=== PATIENT | male | born 1975 | race Two or more races ===

== ENCOUNTER 2024-10-06 17:23 | Inpatient (IN) | payer OTHER ==
[~2024-10-06] VITALS: Ht 167.6 cm; Wt 86.4 kg
[2024-10-06] MEDS ORDERED: 0.9% SODIUM CHLORIDE 10 ML SYRINGE IVP PRN (18:45)
[2024-10-06] MEDS: SODIUM CHLORIDE 0.9% 2,700 ML IV ONE (18:57)
[2024-10-06 19:06] LABS: BASOPHILS % (AUTO) 0.1 % (0.0-2.0); EOSINOPHILS % (AUTO) 0.2 % (1.0-6.0); HEMATOCRIT 37.1 % (41-53); HEMOGLOBIN 12.8 g/dL (13.5-17.5); LYMPHOCYTES % (AUTO) 7.6 % (22.0-44.0); MEAN CORPUSCULAR HEMOGLOBIN 31.9 pg (26.0-34.0); MEAN CORPUSCULAR HGB CONC 34.5 G/dL (31.0-37.0); MEAN CORPUSCULAR VOLUME 92 fL (80-100); MONOCYTES # (AUTO) 0.8 K/uL (0.1-1.0); MONOCYTES % (AUTO) 5.9 % (2.0-9.0); NEUTROPHILS # (AUTO) 11.9 K/uL (1.8-7.7); PLATELET COUNT (AUTO) 359 K/uL (150-450); RED BLOOD CELL COUNT(AUTO) 4.01 MIL/uL (4.50-5.90); RED CELL DISTRIBUTION WIDTH 11.5 % (11.5-14.5); WHITE BLOOD COUNT (AUTO) 13.8 K/uL (4.5-11.0)
[2024-10-06 19:13] LABS: NEUTROPHILS % (AUTO) 86.2 % (40.0-70.0)
[2024-10-06 19:17] LABS: ANION GAP 11 mmol/L (8-16); CALCIUM, TOTAL 8.9 mg/dL (8.8-10.5); CARBON DIOXIDE 24 mmol/L (22-29); CHLORIDE 101 mmol/L (98-107); CREATININE 0.85 mg/dL (0.60-1.30); GLOMERULAR FILTR. RATE CALC > 60 mL/min (>60); GLUCOSE,RANDOM 271 mg/dL (70-110); POTASSIUM 4.1 mmol/L (3.5-5.1); SODIUM SERUM 136 mmol/L (136-145); UREA NITROGEN, BLOOD 12 mg/dL (7-18)
[2024-10-06 19:20] LABS: PROTHROMBIN TIME 9.7 SEC (9.4-11.6)
[2024-10-06 19:26] LABS: LACTIC ACID 1.8 mmol/L (0.4-2.0)
[2024-10-06 19:27] LABS: TROPONIN I-HIGH SENSITIVITY Less Than 4 ng/L (<76)
[2024-10-06] MEDS: VANCOMYCIN 1.75GM/WATER(PEG) 350 ML IV ONE (20:17)
[2024-10-06] MEDS ORDERED: DEXTROSE 50%-WATER 25 GM/50 ML SYRINGE IVP PRN (21:00)
[2024-10-06] MEDS: DOCUSATE SODIUM 100 MG CAPSULE PO SCH (21:00)
[2024-10-06] MEDS ORDERED: ACETAMINOPHEN 325 MG TABLET PO PRN (21:00)
[2024-10-06] MEDS: CefTRIAXone 1 GM/DEXTROSE 50 ML IV SCH (21:36)
[2024-10-06] MEDS: OxyCODONE HCL/ACETAMINOPHEN 5-325 MG TABLET PO PRN (23:18)
[2024-10-06] MEDS: ZOLPIDEM TARTRATE 5 MG TABLET PO PRN (23:19)
[2024-10-07 00:01] VITALS: BP 127/77; PULSE 86; RESP 17; TEMP 98.6; O2SAT 97
[2024-10-07] MEDS: HEPARIN SODIUM,PORCINE 5,000 UNITS/ML VIAL SQ SCH (00:09)
[2024-10-07 01:42] LABS: APPEARANCE,URINE CLEAR (CLEAR); BILIRUBIN,URINE NEGATIVE (NEGATIVE); COLOR,URINE COLORLESS (YELLOW); GLUCOSE, URINE (UA) >=1000 mg/dL (NEGATIVE); KETONES,URINE NEGATIVE (NEGATIVE); LEUKOCYTE ESTERASE ,URINE NEGATIVE (NEGATIVE); NITRATE,URINE NEGATIVE (NEGATIVE); OCCULT BLOOD,URINE NEGATIVE (NEGATIVE); PH,URINE 6.5 (5.0-8.0); PROTEIN,URINE NEGATIVE (NEGATIVE); SPECIFIC GRAVITIY, URINE 1.019 (1.003-1.030); UROBILINOGEN,URINE <=1.0 mg/dL (<=1.0)
[2024-10-07 01:47] LABS: BACTERIA,URINE None Seen /HPF (None Seen); RBC,URINE None Seen /HPF (0-2); SQUAMOUS EPITHELIAL CELL,UR None Seen /LPF (None Seen); WBC,URINE None Seen /HPF (0-5)
[2024-10-07 04:53] VITALS: BP 106/79; PULSE 86; RESP 18; TEMP 98.8; O2SAT 99
[2024-10-07] MEDS: INSULIN LISPRO 100 UNITS/ML SQ PRN (06:15)
[2024-10-07] MEDS: VANCOMYCIN 1.5 GM/WATER(PEG) 300 ML IV SCH (07:54)
[2024-10-07] MEDS: FAMOTIDINE 20 MG TABLET PO SCH (07:54)
[2024-10-07] MEDS: ASPIRIN 81 MG CHEWABLE TABLET PO SCH (07:55)
[2024-10-07 07:56] LABS: ANION GAP 9 mmol/L (8-16); CALCIUM, TOTAL 8.4 mg/dL (8.8-10.5); CARBON DIOXIDE 22 mmol/L (22-29); CHLORIDE 103 mmol/L (98-107); CREATININE 0.64 mg/dL (0.60-1.30); GLOMERULAR FILTR. RATE CALC > 60 mL/min (>60); GLUCOSE,RANDOM 211 mg/dL (70-110); SODIUM SERUM 134 mmol/L (136-145); UREA NITROGEN, BLOOD 7 mg/dL (7-18)
[2024-10-07 08:23] VITALS: BP 105/74; PULSE 81; RESP 18; TEMP 98.2; O2SAT 97
[2024-10-07 16:51] LABS: GLUCOMETER DEV NAME(LOC) 6S.2; GLUCOSE,POINT OF CARE 211 MG/DL (70-110)
[2024-10-07] MEDS: MetFORMIN HCL 500 MG TABLET PO SCH (17:27)
[2024-10-07 18:26] LABS: GLUCOMETER DEV NAME(LOC) 6S.1D; GLUCOSE,POINT OF CARE 252 MG/DL (70-110)
[2024-10-07 18:26] LABS: GLUCOMETER DEV NAME(LOC) 6S.1D; GLUCOSE,POINT OF CARE 192 MG/DL (70-110)
[2024-10-07 20:18] VITALS: BP 108/69; PULSE 87; RESP 18; TEMP 99.1; O2SAT 98
[2024-10-08 05:18] VITALS: BP 112/81; PULSE 78; RESP 18; TEMP 98.2; O2SAT 95
[2024-10-08 07:10] LABS: BASOPHILS % (AUTO) 0.3 % (0.0-2.0); EOSINOPHILS % (AUTO) 0.6 % (1.0-6.0); HEMATOCRIT 34.7 % (41-53); HEMOGLOBIN 12.2 g/dL (13.5-17.5); LYMPHOCYTES # (AUTO) 1.7 K/uL (1.0-4.8); LYMPHOCYTES % (AUTO) 16.7 % (22.0-44.0); MEAN CORPUSCULAR HEMOGLOBIN 32.2 pg (26.0-34.0); MEAN CORPUSCULAR VOLUME 92 fL (80-100); MONOCYTES # (AUTO) 0.6 K/uL (0.1-1.0); MONOCYTES % (AUTO) 5.3 % (2.0-9.0); NEUTROPHILS % (AUTO) 77.1 % (40.0-70.0); PLATELET COUNT (AUTO) 357 K/uL (150-450); RED BLOOD CELL COUNT(AUTO) 3.78 MIL/uL (4.50-5.90); RED CELL DISTRIBUTION WIDTH 11.5 % (11.5-14.5); WHITE BLOOD COUNT (AUTO) 10.3 K/uL (4.5-11.0)
[2024-10-08 07:40] LABS: GLUCOMETER DEV NAME(LOC) 6N.2B; GLUCOSE,POINT OF CARE 252 MG/DL (70-110)
[2024-10-08 07:40] LABS: GLUCOMETER DEV NAME(LOC) 6N.2B; GLUCOSE,POINT OF CARE 271 MG/DL (70-110)
[2024-10-08 08:32] VITALS: BP 115/77; PULSE 79; RESP 20; TEMP 99; O2SAT 99
[2024-10-08 17:05] LABS: GLUCOMETER DEV NAME(LOC) 6S.2; GLUCOSE,POINT OF CARE 288 MG/DL (70-110)
[2024-10-08 20:20] VITALS: BP 109/64; PULSE 79; RESP 18; TEMP 98.2; O2SAT 97
[2024-10-09 06:00] VITALS: BP 115/83; PULSE 79; RESP 16; TEMP 98.2; O2SAT 99
[2024-10-09 07:29] LABS: ANION GAP 5 mmol/L (8-16); CALCIUM, TOTAL 9.1 mg/dL (8.8-10.5); CARBON DIOXIDE 28 mmol/L (22-29); CHLORIDE 99 mmol/L (98-107); GLOMERULAR FILTR. RATE CALC > 60 mL/min (>60); GLUCOSE,RANDOM 250 mg/dL (70-110); SODIUM SERUM 132 mmol/L (136-145); UREA NITROGEN, BLOOD 11 mg/dL (7-18)
[2024-10-09 08:00] VITALS: BP 109/78; PULSE 81; RESP 17; TEMP 98.1; O2SAT 98
[2024-10-09] MEDS: VANCOMYCIN 1.25 GM/WATER(PEG) 250 ML IV SCH (09:29)
[2024-10-09] MEDS: MetFORMIN HCL 500 MG TABLET PO SCH (17:36)
[2024-10-09 19:31] VITALS: BP 116/82; PULSE 82; RESP 18; TEMP 97.9; O2SAT 97
[2024-10-09] MEDS: SODIUM CHLORIDE 0.9% 1,000 ML IV ONE (19:59)
[2024-10-09 20:40] LABS: GLUCOMETER DEV NAME(LOC) 6N.2B; GLUCOSE,POINT OF CARE 331 MG/DL (70-110)
[2024-10-09 20:40] LABS: GLUCOMETER DEV NAME(LOC) 6N.2B; GLUCOSE,POINT OF CARE 358 MG/DL (70-110)
[2024-10-10] MEDS: MORPHINE SULFATE 2 MG/ML SYRINGE IVP PRN (00:40)
[2024-10-10 04:15] VITALS: BP 115/78; PULSE 72; RESP 18; TEMP 98.4; O2SAT 97
[2024-10-10 07:57] VITALS: BP 115/81; PULSE 71; RESP 18; TEMP 98.1; O2SAT 95
[2024-10-10 08:25] LABS: GLUCOMETER DEV NAME(LOC) 6N.2B; GLUCOSE,POINT OF CARE 233 MG/DL (70-110)
[2024-10-10 10:48] LABS: ANION GAP 1 mmol/L (8-16); CALCIUM, TOTAL 9.1 mg/dL (8.8-10.5); CARBON DIOXIDE 31 mmol/L (22-29); CHLORIDE 102 mmol/L (98-107); CREATININE 0.88 mg/dL (0.60-1.30); GLOMERULAR FILTR. RATE CALC > 60 mL/min (>60); GLUCOSE,RANDOM 246 mg/dL (70-110); POTASSIUM 4.9 mmol/L (3.5-5.1); SODIUM SERUM 133 mmol/L (136-145); UREA NITROGEN, BLOOD 11 mg/dL (7-18)
[2024-10-10] MEDS: ETHYL ALCOHOL 62% ANTISEPTIC NASAL SANITIZER 0.6 ML AMPUL NASAL ONE (11:08)
[2024-10-10] MEDS: CHLORHEXIDINE GLUCONATE 2% TOWELETTE [2'S/6'S] TP ONE (11:17)
[2024-10-10] MEDS: RINGERS SOLUTION,LACTATED 1,000 ML IV ONE (11:19)
[2024-10-10] MEDS ORDERED: FentaNYL CITRATE PF 100 MCG/2 ML VIAL IVP PRN (12:15)
[2024-10-10] MEDS ORDERED: MEPERIDINE-PF 25 MG/ML VIAL IVP PRN (12:15)
[2024-10-10] MEDS ORDERED: HYDROmorphone HCL 2 MG/ML SYRINGE IVP PRN (12:15)
[2024-10-10] MEDS: LIDOCAINE/PF 2% 5 ML VIAL ONE (12:49)
[2024-10-10] MEDS: BUPIVACAINE HCL/PF 0.25% 30 ML VIAL ONE (12:51)
[2024-10-10] MEDS ORDERED: ONDANSETRON HCL 4 MG/2 ML VIAL ONE (18:00)
[2024-10-10] MEDS ORDERED: PROPOFOL 1% 20 ML VIAL IVP ONE (18:00)
[2024-10-10] MEDS ORDERED: 0.9% SODIUM CHLORIDE 10 ML VIAL ONE (18:00)
[2024-10-10] MEDS ORDERED: PHENYLEPHRINE HCL 10 MG/ML VIAL ONE (18:00)
[2024-10-10] MEDS ORDERED: LIDOCAINE/PF 2% 5 ML SYRINGE IVP ONE (18:00)
[2024-10-10] MEDS ORDERED: SUGAMMADEX SODIUM 200 MG/2 ML VIAL IVP ONE (18:00)
[2024-10-10] MEDS ORDERED: ROCURONIUM BROMIDE 10 MG/ML 5 ML VIAL ONE (18:00)
[2024-10-10 18:41] LABS: GLUCOMETER DEV NAME(LOC) 6S.1D; GLUCOSE,POINT OF CARE 354 MG/DL (70-110)
[2024-10-10 18:41] LABS: GLUCOMETER DEV NAME(LOC) 6S.1D; GLUCOSE,POINT OF CARE 290 MG/DL (70-110)
[2024-10-10 18:41] LABS: GLUCOMETER DEV NAME(LOC) 6S.1D; GLUCOSE,POINT OF CARE 237 MG/DL (70-110)
[2024-10-10 18:41] LABS: GLUCOMETER DEV NAME(LOC) 6S.1D; GLUCOSE,POINT OF CARE 268 MG/DL (70-110)
[2024-10-10 19:55] VITALS: BP 109/76; PULSE 83; RESP 18; TEMP 98.4; O2SAT 96
[2024-10-11 01:21] LABS: GLUCOMETER DEV NAME(LOC) 6S.1D; GLUCOSE,POINT OF CARE 278 MG/DL (70-110)
[2024-10-11 01:21] LABS: GLUCOMETER DEV NAME(LOC) 6N.2B; GLUCOSE,POINT OF CARE 326 MG/DL (70-110)
[2024-10-11 04:35] VITALS: BP 100/79; PULSE 70; RESP 16; TEMP 97.7; O2SAT 96
[2024-10-11 06:40] LABS: GLUCOMETER DEV NAME(LOC) 6S.1D; GLUCOSE,POINT OF CARE 243 MG/DL (70-110)
[2024-10-11 07:44] LABS: ANION GAP 7 mmol/L (8-16); CALCIUM, TOTAL 9.2 mg/dL (8.8-10.5); CARBON DIOXIDE 29 mmol/L (22-29); CHLORIDE 100 mmol/L (98-107); CREATININE 0.98 mg/dL (0.60-1.30); GLOMERULAR FILTR. RATE CALC > 60 mL/min (>60); GLUCOSE,RANDOM 254 mg/dL (70-110); POTASSIUM 4.3 mmol/L (3.5-5.1); SODIUM SERUM 136 mmol/L (136-145); UREA NITROGEN, BLOOD 13 mg/dL (7-18)
[2024-10-11 07:59] VITALS: BP 96/65; PULSE 66; RESP 18; TEMP 98.1; O2SAT 98
[2024-10-11] MEDS: OXYGEN THERAPY IH SCH (08:00)
[2024-10-11 17:25] LABS: GLUCOMETER DEV NAME(LOC) 6N.2B; GLUCOSE,POINT OF CARE 290 MG/DL (70-110)
[2024-10-11 19:51] VITALS: BP 111/76; PULSE 74; RESP 18; TEMP 98.1; O2SAT 96
[2024-10-11 21:05] LABS: GLUCOMETER DEV NAME(LOC) 6S.1D; GLUCOSE,POINT OF CARE 203 MG/DL (70-110)
[2024-10-12 00:46] LABS: GLUCOMETER DEV NAME(LOC) 6N.2B; GLUCOSE,POINT OF CARE 218 MG/DL (70-110)
[2024-10-12 05:17] VITALS: BP 106/69; PULSE 57; RESP 19; TEMP 97.5; O2SAT 97
[2024-10-12] MEDS ORDERED: MIDAZOLAM HCL 2 MG/2 ML VIAL IVP ONE (06:53)
[2024-10-12 08:00] VITALS: BP 96/61; PULSE 59; RESP 20; TEMP 97.5; O2SAT 100
[2024-10-12 08:21] LABS: GLUCOMETER DEV NAME(LOC) 6N.2B; GLUCOSE,POINT OF CARE 239 MG/DL (70-110)
[2024-10-12] MEDS ORDERED: SODIUM CHLORIDE 0.9% 1,000 ML ONE (09:21)
[2024-10-12 20:01] VITALS: BP 115/79; PULSE 79; RESP 18; TEMP 98.2; O2SAT 97
[2024-10-12 20:25] LABS: GLUCOMETER DEV NAME(LOC) 6S.2; GLUCOSE,POINT OF CARE 228 MG/DL (70-110)
[2024-10-12 20:25] LABS: GLUCOMETER DEV NAME(LOC) 6S.2; GLUCOSE,POINT OF CARE 194 MG/DL (70-110)
[2024-10-13 04:00] VITALS: BP 112/71; PULSE 63; RESP 18; TEMP 97.5; O2SAT 97
[2024-10-13 05:16] LABS: GLUCOMETER DEV NAME(LOC) 6S.2; GLUCOSE,POINT OF CARE 234 MG/DL (70-110)
[2024-10-13 07:15] LABS: BASOPHILS % (AUTO) 0.5 % (0.0-2.0); EOSINOPHILS % (AUTO) 2.3 % (1.0-6.0); HEMOGLOBIN 12.8 g/dL (13.5-17.5); LYMPHOCYTES # (AUTO) 2.2 K/uL (1.0-4.8); LYMPHOCYTES % (AUTO) 36.7 % (22.0-44.0); MEAN CORPUSCULAR HEMOGLOBIN 31.7 pg (26.0-34.0); MEAN CORPUSCULAR HGB CONC 34.6 G/dL (31.0-37.0); MEAN CORPUSCULAR VOLUME 92 fL (80-100); MONOCYTES # (AUTO) 0.4 K/uL (0.1-1.0); MONOCYTES % (AUTO) 6.5 % (2.0-9.0); NEUTROPHILS # (AUTO) 3.2 K/uL (1.8-7.7); PLATELET COUNT (AUTO) 476 K/uL (150-450); RED BLOOD CELL COUNT(AUTO) 4.04 MIL/uL (4.50-5.90); RED CELL DISTRIBUTION WIDTH 11.5 % (11.5-14.5)
[2024-10-13 07:39] LABS: ANION GAP 8 mmol/L (8-16); CARBON DIOXIDE 25 mmol/L (22-29); CHLORIDE 100 mmol/L (98-107); CREATININE 0.78 mg/dL (0.60-1.30); GLOMERULAR FILTR. RATE CALC > 60 mL/min (>60); GLUCOSE,RANDOM 277 mg/dL (70-110); POTASSIUM 4.4 mmol/L (3.5-5.1); SODIUM SERUM 133 mmol/L (136-145); UREA NITROGEN, BLOOD 20 mg/dL (7-18)
[2024-10-13 08:43] VITALS: BP 109/83; PULSE 60; RESP 18; TEMP 97.1; O2SAT 100
[2024-10-13 18:40] LABS: GLUCOMETER DEV NAME(LOC) 6S.2; GLUCOSE,POINT OF CARE 280 MG/DL (70-110)
[2024-10-13 18:40] LABS: GLUCOMETER DEV NAME(LOC) 6S.2; GLUCOSE,POINT OF CARE 253 MG/DL (70-110)
[2024-10-13 18:46] LABS: GLUCOMETER DEV NAME(LOC) 6S.1D; GLUCOSE,POINT OF CARE 280 MG/DL (70-110)
[2024-10-13 20:18] VITALS: BP 121/79; PULSE 69; RESP 18; TEMP 98.1; O2SAT 96
[2024-10-14 03:47] VITALS: BP 105/70; PULSE 65; RESP 18; TEMP 98.4; O2SAT 98
[2024-10-14 08:24] LABS: ANION GAP 8 mmol/L (8-16); CARBON DIOXIDE 26 mmol/L (22-29); CHLORIDE 102 mmol/L (98-107); CREATININE 0.72 mg/dL (0.60-1.30); GLOMERULAR FILTR. RATE CALC > 60 mL/min (>60); GLUCOSE,RANDOM 168 mg/dL (70-110); POTASSIUM 3.9 mmol/L (3.5-5.1); SODIUM SERUM 136 mmol/L (136-145); UREA NITROGEN, BLOOD 19 mg/dL (7-18)
[2024-10-14 08:33] VITALS: BP 109/64; PULSE 63; RESP 18; TEMP 97.7; O2SAT 98
[2024-10-14 13:16] LABS: GLUCOMETER DEV NAME(LOC) 6N.2B; GLUCOSE,POINT OF CARE 205 MG/DL (70-110)
[2024-10-14 13:16] LABS: GLUCOMETER DEV NAME(LOC) 6S.2; GLUCOSE,POINT OF CARE 241 MG/DL (70-110)
[2024-10-14 13:16] LABS: GLUCOMETER DEV NAME(LOC) 6N.2B; GLUCOSE,POINT OF CARE 237 MG/DL (70-110)
[2024-10-14 17:21] LABS: GLUCOMETER DEV NAME(LOC) 6N.2B; GLUCOSE,POINT OF CARE 325 MG/DL (70-110)
[2024-10-14 21:00] VITALS: BP 115/76; PULSE 74; RESP 18; TEMP 98.2; O2SAT 95
[2024-10-14 22:31] LABS: GLUCOMETER DEV NAME(LOC) 6N.2B; GLUCOSE,POINT OF CARE 170 MG/DL (70-110)
[2024-10-15 03:41] VITALS: BP 101/68; PULSE 66; RESP 18; TEMP 98.1; O2SAT 97
[2024-10-15 08:06] LABS: GLUCOMETER DEV NAME(LOC) 6S.1D; GLUCOSE,POINT OF CARE 267 MG/DL (70-110)
[2024-10-15 08:38] VITALS: BP 106/76; PULSE 69; RESP 18; TEMP 98.2; O2SAT 97
[2024-10-15 12:01] LABS: GLUCOMETER DEV NAME(LOC) 6N.2B; GLUCOSE,POINT OF CARE 278 MG/DL (70-110)
[2024-10-15 17:15] LABS: GLUCOMETER DEV NAME(LOC) 6S.1D; GLUCOSE,POINT OF CARE 252 MG/DL (70-110)
[2024-10-15 19:48] VITALS: BP 109/77; PULSE 78; RESP 18; TEMP 97.5; O2SAT 98
[2024-10-16 01:25] LABS: GLUCOMETER DEV NAME(LOC) 6S.2; GLUCOSE,POINT OF CARE 179 MG/DL (70-110)
[2024-10-16 05:07] VITALS: BP 111/64; PULSE 62; RESP 19; TEMP 97.8; O2SAT 99
[2024-10-16 07:51] LABS: GLUCOMETER DEV NAME(LOC) 6S.1D; GLUCOSE,POINT OF CARE 223 MG/DL (70-110)
[2024-10-16 08:25] VITALS: BP 121/75; PULSE 61; RESP 18; TEMP 97.9; O2SAT 99
[2024-10-16 08:58] LABS: ANION GAP 6 mmol/L (8-16); CALCIUM, TOTAL 9.5 mg/dL (8.8-10.5); CARBON DIOXIDE 29 mmol/L (22-29); CHLORIDE 101 mmol/L (98-107); CREATININE 0.79 mg/dL (0.60-1.30); GLOMERULAR FILTR. RATE CALC > 60 mL/min (>60); GLUCOSE,RANDOM 157 mg/dL (70-110); POTASSIUM 4.2 mmol/L (3.5-5.1); SODIUM SERUM 136 mmol/L (136-145); UREA NITROGEN, BLOOD 20 mg/dL (7-18)
[2024-10-16 12:00] LABS: GLUCOMETER DEV NAME(LOC) 6S.2; GLUCOSE,POINT OF CARE 223 MG/DL (70-110)
[2024-10-16 19:52] VITALS: BP 107/67; PULSE 69; RESP 19; TEMP 98.2; O2SAT 95
[2024-10-16 20:50] LABS: GLUCOMETER DEV NAME(LOC) 6S.1D; GLUCOSE,POINT OF CARE 230 MG/DL (70-110)
[2024-10-16 23:51] LABS: GLUCOMETER DEV NAME(LOC) 6S.2; GLUCOSE,POINT OF CARE 244 MG/DL (70-110)
[2024-10-17 04:14] VITALS: BP 106/68; PULSE 63; RESP 18; TEMP 98.1; O2SAT 96
[2024-10-17 08:09] VITALS: BP 108/66; PULSE 66; RESP 18; TEMP 98.2; O2SAT 96
[2024-10-17 08:46] LABS: GLUCOMETER DEV NAME(LOC) 6S.1D; GLUCOSE,POINT OF CARE 255 MG/DL (70-110)
[2024-10-17] MEDS: LINEZOLID 600 MG TABLET PO ONE (12:35)
[2024-10-17] MEDS ORDERED: ASPI-1450 PO (13:35)
[2024-10-17] MEDS ORDERED: METF-1211 PO (13:36)
[2024-10-17] MEDS ORDERED: LINE600T14 PO (13:36)
[2024-10-17] MEDS ORDERED: ACET-2247 PO (13:38)
[2024-10-17] MEDS ORDERED: INSU100V SQ (13:39)
[2024-10-17] MEDS ORDERED: LINEZOLID 600 MG TABLET PO SCH (21:00)
[2024-10-18 02:05] LABS: GLUCOMETER DEV NAME(LOC) 6S.2; GLUCOSE,POINT OF CARE 226 MG/DL (70-110)
== END 2024-10-17 16:45 | DRG 580 ==
LOC: EMS 17:23 → EDH 20:48 → 6N 23:50 → UNDODISIN 10-07 10:30
PROVIDERS: ADMIT Internal Medicine; ATTEND Internal Medicine
PROC: 0JDQ0ZZ Extraction of Right Foot Subcutaneous Tissue and Fascia, Open Approach (ICD-10-PCS; principal; 2024-10-10 12:00)
DX: L03.115 Cellulitis of right lower limb (principal); L02.611 Cutaneous abscess of right foot; B95.62 Methicillin resistant Staphylococcus aureus infection as the cause of diseases classified elsewhere; E11.65 Type 2 diabetes mellitus with hyperglycemia; E66.9 Obesity, unspecified; I10 Essential (primary) hypertension; Z83.3 Family history of diabetes mellitus; Z91.199 Patient's noncompliance with other medical treatment and regimen due to unspecified reason; Z68.30 Body mass index [BMI] 30.0-30.9, adult
CPT/HCPCS: 71045; 73700; 80048; 80202; 81001; 82962; 83605; 84145; 84484; 85025; 85610; 87040; 87070; 87186; 87205; 93005; 96365; 99285; J0696; J1644; J2250; J2270; J2405; J2704; J3490; J7030; 36415-L1; 36415-TC